=== PATIENT | female | born 1965 | race African-American/Black ===

== ENCOUNTER 2017-11-27 09:15 | Day surgery (SDC) | payer OTHER ==
[~2017-11-27] VITALS: Ht 177.8 cm; Wt 98.9 kg
[2017-11-27] VITALS (7 sets, daily range): BP systolic 100–141; BP diastolic 46–63
[~2017-11-27 09:15] MED LIST: LR 1000ml 1,000 ML IVLG SCH
--- NOTE | 2017-11-27 09:30 | Short Stay Surgery H&P ---
History of Present Illness History of Present Illness Chief Complaint Abdominal pains/heartburn-GERDs and dysphagia HPI Princess Cotter is a 52 year old female who was admitted on for Abdominal Pain and GERds with dysphagia Patient History Allergies: Coded Allergies: No Known Allergies (Unverified , 11/26/17) Review of Systems Cardiovascular: Reports: no symptoms Respiratory: Reports: sleep apnea Skeletal: Reports: trauma Gastrointestinal: Reports: gastro esophageal reflux disease Genitourinary: Reports: no symptoms Neurologic: Reports: no symptoms Endocrine: Reports: no symptoms Hematologic: Reports: no symptoms Physical Exam Skin: normal HENT: normal Heart: normal Lungs: normal Abdomen: abnormal Extremities: normal Genitourinary: normal Plan Plan of Care Upper GI endoscopy and biopsy Preop Interventions none. Summary of Findings See the reports Attestation Are the patient's medical conditions optimized for surgery? Attestation Response: yes Alex Amin MD Nov 27, 2017 09:30
--- NOTE | 2017-11-27 09:31 | Pre-Procedure Note/Attestation ---
Pre-Procedure Note/Attestation Complete Prior to Procedure Planned Procedure: left Procedure Narrative: Examiantion of the upper GI traact via endoscopy and obtaining biopsy Indications for Procedure Pre-Operative Diagnosis: R/O Esophagitis/Peptic ulcer/gastritis Attestation I attest that I discussed the nature of the procedure; its benefits; risks and complications; and alternatives (and the risks and benefits of such alternatives ), prior to the procedure, with the patient (or the patient's legal sales utility representative). I attest that, if there was a reasonable possibility of needing a blood transfusion, the patient (or the patient's legal sales utility representative) was given the [facility] standardized written summary, pursuant to the Conner Maritza Blood Safety Act ([place] Health and Safety Code # 1645, as amended). I attest that I re-evaluated the patient just prior to the surgery and that there has been no change in the patient's H&P, except as documented below: Alex Amin MD Nov 27, 2017 09:31
[2017-11-27] MEDS ORDERED: LR 1000ml 1,000 ML IVLG SCH (09:33)
--- NOTE | 2017-11-27 09:44 | Anethesia Preoperative Eval ---
Anesthesia Pre-op PMH/ROS General Date of Evaluation: Nov 27, 2017 Time of Evaluation: 09:30 Anesthesiologist: ileana ASA Score: ASA 3 Mallampati Score Class I : Soft palate, uvula, fauces, pillars visible Class II: Soft palate, uvula, fauces visible Class III: Soft palate, base of uvula visible Class IV: Only hard plate visible Mallampati Classification: Class II Surgeon: shelby Diagnosis: abdominal pain Surgical Procedure: egd Anesthesia History: none Family History: no anesthesia problems Allergies: Coded Allergies: RINGER'S SOLUTION,LACTATED (Verified Allergy, Severe, 11/27/17) HIVES Medications: see eMAR Past Medical History Pulmonary: Reports: asthma, SNOW, other Endocrine: Reports: DM - pre-diabetes PSxH Narrative: , lipectomy, myomectomy Anesthesia Pre-op Phys. Exam Physician Exam Constitutional: NAD Neurologic: CN 2-12 intact Cardiovascular: RRR Respiratory: CTA Gastrointestinal: S/NT/ND Airway Exam Mallampati Score: Class II MO: limited Neck: short TMD: 2fb ROM: limited Anesthesia Pre-op A/P Risk Assessment & Plan Assessment: asa3 Plan: mac Status Change Before Surgery: No Pre-Antibiotics Drug: Kelly Burch MD Nov 27, 2017 09:44
[2017-11-27] MEDS ORDERED: Atropine Inj 1mg/10ml Syr IV PRN (09:45)
[2017-11-27] MEDS ORDERED: fentaNYL 100 mcg/2 mL IV PRN (09:45)
[2017-11-27] MEDS ORDERED: Propofol 200mg/20ml IV ONE (09:45)
[2017-11-27] MEDS ORDERED: Labetalol 5mg/ml 20ml vial IV PRN (09:45)
[2017-11-27] MEDS ORDERED: DiphenhydrAMINE 50mg/ml Inj IVP PRN (09:45)
[2017-11-27] MEDS ORDERED: Lidocaine 1% MPF 10mg/ml 5ml ONE (09:45)
[2017-11-27] MEDS ORDERED: Midazolam 2mg/2ml Inj IVP PRN (09:45)
[2017-11-27] MEDS ORDERED: FAMOTIDINE40 MG ORAL (10:16)
[2017-11-27] MEDS ORDERED: FOLIC ACID0.4 MG ORAL (10:16)
[2017-11-27] MEDS ORDERED: LORATADINE10 M2 PO (10:16)
[2017-11-27] MEDS ORDERED: PAMELOR10 MG ORAL (10:16)
--- NOTE | 2017-11-27 10:19 | Endoscopy Procedure Note ---
Endoscopy Procedure Note General Indication for Procedure: Abdominal pains/GERds and dysphagia Procedures Performed: EGD - Completely normal Upper GI endoscopy as a random biopsy also obtained from gastric body with 10 CC epinephrine 1/27621, wash over the site of the biopsied area. Specimen: yes Pt Tolerated Procedure Well: Yes Estimated Blood Loss: none Anesthesia Anesthesiologist: Dr. Bejarano Anesthesia: moderate sedation Medications Medication Given: see anesthesia record Inserted Devices Implant(s) used?: No Quality Quality of Bowel Preparation: Excellent Was there any complications?: No GI Core Measures 50 yrs or older w/o bx or poly: Not Applicable 10yrs. F/U not recommended: Not Applicable If not recommended, why?: Med reason:<3 yrs.: System Reason:<3 yrs.: Alex Amin MD Nov 27, 2017 10:19
--- NOTE | 2017-11-27 10:20 | Discharge Instructions ---
Discharge Instructions Discharge Instructions Follow up with: See the doctor after 2 weeks in the office. For Congestive Heart Failure Reminder Report to your physician any weight gain of 5 pounds or more in one week. Alex Amin MD Nov 27, 2017 10:20
[2017-11-27] MEDS ORDERED: VITAMIN B2 PO (10:27)
[2017-11-27] MEDS ORDERED: LANSOPRAZOLE30 MG ORAL (10:27)
[2017-11-27] MEDS ORDERED: VITAMIN B122500 MCG PO (10:27)
[2017-11-27] MEDS ORDERED: MAG-OXIDE400 M1 PO (10:27)
[2017-11-27] MEDS ORDERED: VENTOLIN HFA18 GM INH (10:28)
--- NOTE | 2017-11-27 16:15 | Operative Note - Dictated ---
DATE OF OPERATION: 11/27/2017 SURGEON: Alex Amin M.D. PROCEDURE: Esophagogastroduodenoscopy with biopsy. PREOPERATIVE DIAGNOSES: Abdominal pain, dysphagia, history of peptic ulcer disease, rule out recurrent peptic ulcer. POSTOPERATIVE DIAGNOSES: Completely normal upper GI endoscopy. Biopsy was taken per random from gastric body. MEDICATION USED: Per Dr. Bejarano, anesthesiologist. INSTRUMENT: GIF Olympus upper GI video endoscope. DESCRIPTION OF PROCEDURE: The patient after arriving at endoscopy unit, was told about risks and benefits of the procedure, which she accepted and signed informed consent. At this time, she was put on the left lateral decubitus position. After adequate IV sedation, the scope was gently passed through the cricopharyngeal area, was lodged into the upper esophagus and gradually advanced towards gastroesophageal junction. The entire length of the esophagus was normal and so was normal in the area of GE junction. There was no evidence of hiatal hernia or Paris's. At this time, the scope was advanced into the stomach. Gastric cavity was distended with insufflation of air and the areas of the fundus, the body, and the antrum were examined in chip crusher operator fashion, which basically revealed completely normal as the gastric mucosa revealed no abnormality, no evidence of edema or any ulceration noted. There was no any polyps or tumors. At this time, one random biopsy from the gastric body obtained and the site of the biopsy was washed with 1:10,000 epinephrine solution. No further bleeding from the biopsy site was noted. At this time, the scope was passed through the antrum. The first and second portion of duodenum were found to be completely normal. Finally, the scope was pulled out. The procedure was terminated. The patient tolerated the procedure well and left the endoscopy room in good condition. Alex Amin M.D. DR: Arpit JOB#: [id number] CC:
--- NOTE | 2017-11-27 16:30 | Pre-op HX & Phy Repo 2 SIG ---
DATE OF ADMISSION: 11/27/2017 HISTORY OF PRESENT ILLNESS: The patient is 52-year-old female who is being seen prior to undergoing the procedure of upper GI endoscopy for which she has been scheduled to receive for evaluation of gastrointestinal conditions that she has had subsequent to her work injury and life after [employer]. The patient has been seen by multiple physicians including Dr. Coburn and Dr. Fortune in the past and has been followed and received care in regards to her work related injury as well. The applicant who was seen in my office earlier some weeks ago has been basically complaining of experiencing pain and discomfort over the epigastric area with feeling of heartburn and gastroesophageal reflux symptoms over the chest wall. These symptoms are recurring on a daily basis with moderate intensity of pain in that area as well. The patient reported that she had history of diagnosed peptic ulcer disease in the past whereby was related to the side effects of medications that she was taking including nonsteroidal anti-inflammatory agents. She has undergone at least a couple of times of upper GI endoscopy and the last 1 proved that there was basically no evidence of ulcer. The patient also reported that in the past, she was diagnosed to have Helicobacter pylori infection, which has been adequately treated. 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 As such, she developed injuries over her lower back and upper extremities. She was also under extensive stress at job site and also has been seen by psychologist. Subsequent to her work injury, she claimed she was started on nonsteroidal anti-inflammatory agents, NSAIDs, as she started to have these symptoms. The patient subsequently was started on medications such as Maalox and Tagamet for the problem of the heartburn that she was complaining of. The patient therefore has been experiencing pain over the lower back and shoulders both sides and the wrists as well as GI condition and symptoms that I mentioned. PAST MEDICAL HISTORY: Basically significantly she has had history for asthma, allergic rhinitis, gastroesophageal reflux with history of peptic ulcer disease. She has also had sleep apnea and anxiety and depression and also obesity. SURGICAL HISTORY: Significant for a myomectomy and and lipoma resection of the left thigh. MEDICATIONS: Currently, is trazodone, Tylenol, azelastine, Ventolin HFA, loratadine, nortriptyline and famotidine. ALLERGIES: Pollen and dust. HABITS: The applicant denies drinking alcohol or smoking cigarettes. REVIEW OF SYSTEMS: Basically history of present illness. PHYSICAL EXAMINATION: GENERAL: At this time reveals alert and oriented female, does not seem to be in acute distress. She looks overweight. VITAL SIGNS: All stable. HEENT: Normocephalic. Pupils equal in size and reactive to light and accommodation. No visible jaundice. Buccal cavity, tongue midline, well hydrated. No ulcers. NECK: Supple. No JVD, thyromegaly, or adenopathy. CHEST: Clear to auscultation and percussion. No rales or rhonchi. HEART: S1 and S2 normal. Regular rhythm. No gallops or murmur. ABDOMEN: Mild tenderness, but there is no palpable mass. No hepatosplenomegaly. Bowel sounds are present. EXTREMITIES: Within normal limits. PRELIMINARY IMPRESSION: 1. Abdominal pain, epigastric pain of uncertain etiology, rule out recurrent peptic ulcer disease, gastritis, esophagitis explaining the dysphagia of the patient or esophageal spasm secondary to gastroesophageal reflux. 2. History of bodily injury, work related. 3. Asthma. 4. Sleep apnea. 5. Anxiety and depression. RECOMMENDATION: The applicant seems to be stable at this time to undergo the procedure of upper GI endoscopy for which she has been scheduled. She understands the risks and benefits of this procedure and will sign the consent. Said Ping Amin DR: JEFE JOB#: [id number] CC:
--- NOTE | 2017-11-30 08:38 | Immediate Post-Op Evaluation ---
Immediate Post-Op Evalulation Immediate Post-Op Evalulation Procedure: egd w/bx Date of Evaluation: Nov 27, 2017 Time of Evaluation: 10:39 IV Fluids: 200ml 0.9ns Blood Products: none Estimated Blood Loss: negligible Blood Pressure Systolic: 144 Blood Pressure Diastolic: 46 Pulse Rate: 57 Respiratory Rate: 18 O2 Sat by Pulse Oximetry: 100 Temperature (Fahrenheit): 97.5 Pain Score (1-10): 0 Nausea: No Vomiting: No Complications none Patient Status: awake, reacts, patent Hydration Status: adequate Drug: Kelly Burch MD Nov 30, 2017 08:38
[2017-11-30 08:40] VITALS: BP 129/63
--- NOTE | 2017-11-30 08:40 | 48 Hour Post Anesthesia Eval ---
Post Anesthesia Evaluation Procedure: egd w/bx Date of Evaluation: Nov 27, 2017 Time of Evaluation: 10:41 Blood Pressure Systolic: 129 0: 63 Pulse Rate: 54 Temperature (Fahrenheit): 97.5 O2 Sat by Pulse Oximetry: 100 Airway: patent Nausea: No Vomiting: No Pain Intensity: 0 Hydration Status: adequate Cardiopulmonary Status: stable Mental Status/LOC: patient returned to baseline Post-Anesthesia Complications: none Follow-up care needed: N/A Kelly Ortiz MD Nov 30, 2017 08:40
== END 2017-11-27 11:20 | disposition home or self-care (01) ==
LOC: GAS 09:15
DX: R10.9 Unspecified abdominal pain (principal); R13.10 Dysphagia, unspecified; Z87.11 Personal history of peptic ulcer disease; F41.9 Anxiety disorder, unspecified; F32.9 Major depressive disorder, single episode, unspecified; J45.909 Unspecified asthma, uncomplicated; K21.9 Gastro-esophageal reflux disease without esophagitis; E66.9 Obesity, unspecified; Z68.31 Body mass index [BMI] 31.0-31.9, adult; G47.33 Obstructive sleep apnea (adult) (pediatric); E11.9 Type 2 diabetes mellitus without complications
CPT/HCPCS: 43239; J2704; 94003; 94150